=== PATIENT | female | born 1985 | race Hispanic/Latino ===

== ENCOUNTER 2022-11-19 13:21 | Observation (INO) | payer BC ==
[~2022-11-19] VITALS: Ht 154.9 cm; Wt 111.6 kg
[2022-11-19] VITALS (21 sets, daily range): BP systolic 89–126; BP diastolic 51–95
[2022-11-19 14:43] LABS: BASOPHILS % (AUTO) 0.2 % (0.0-5.0); EOSINOPHILS % (AUTO) 0.6 % (0.0-8.0); HEMATOCRIT 39.1 % (36-48); LYMPHOCYTES % (AUTO) 15.8 % (21.0-51.0); MEAN CORPUSCULAR HEMOGLOBIN 28.8 pg (27.0-33.0); MEAN CORPUSCULAR HGB CONC 33.8 g/dL (32.0-36.0); MEAN CORPUSCULAR VOLUME 85.4 fL (79-99); MONOCYTES % (AUTO) 6.3 % (3.0-13.0); NEUTROPHILS % (AUTO) 76.5 % (40.0-77.0); PLATELET COUNT (AUTO) 361 K/uL (130-400); RED BLOOD CELL COUNT(AUTO) 4.58 MIL/uL (4.00-5.50); RED CELL DISTRIBUTION WIDTH 12.5 % (11.0-15.5); WHITE BLOOD COUNT (AUTO) 14.2 K/uL (4.8-10.8)
[2022-11-19] MEDS ORDERED: MORPHINE 2 MG SYG IVP PRN (15:00)
[2022-11-19] MEDS ORDERED: VANCOMYCIN PROTOCOL PER PHARMACY IV SCH (15:00)
[2022-11-19] MEDS ORDERED: ACETAMINOPHEN 325 MG TAB PO PRN (15:00)
[2022-11-19 15:05] LABS: POTASSIUM 3.5 mmol/L (3.5-5.1)
[2022-11-19 15:06] LABS: ALBUMIN 3.6 g/dL (3.5-5.0); THYROID STIMULATING HORMONE 1.2 uIU/mL (0.36-3.74); TOTAL PROTEIN, SERUM 7.9 g/dL (6.0-8.3)
[2022-11-19 15:41] LABS: INR 1.02 (0.85-1.15); PROTHROMBIN TIME 11.1 SEC (9.6-11.6)
[2022-11-19 15:45] LABS: ERYTHROCYTE SEDIMENTATION RATE 48 MM/HR (0-20)
[2022-11-19] MEDS ORDERED: VANCOMYCIN 2GM/500 ML BAG 500 ML IV ONE (16:00)
[2022-11-19] MEDS ORDERED: BUPIVACAINE/EPI/PF 0.25% 10ML VIAL IJ ONE (16:10)
[2022-11-19] MEDS ORDERED: IOHEXOL-350 75 ML VIAL IV ONE (16:41)
[2022-11-19] MEDS ORDERED: 0.9%NACL 1000ML 1,000 ML IV ONE (17:41)
[2022-11-19] MEDS ORDERED: PROPOFOL 10 MG/ML 20ML VIAL IV ONE (17:46)
[2022-11-19] MEDS ORDERED: MIDAZOLAM HCL 1 MG/ML 2ML VIAL ONE (17:46)
[2022-11-19] MEDS ORDERED: ONDANSETRON 4MG INJ ONE (17:51)
[2022-11-19] MEDS ORDERED: ROCURONIUM 10MG/1ML SYR 10 MG/ML ML ONE (17:52)
[2022-11-19] MEDS ORDERED: INSULIN HUMULIN R 100 UNIT/ML 3ML SQ SCH (18:00)
[2022-11-19] MEDS ORDERED: MEPERIDINE-PF 25 MG/ML SYG ONE ×3 (18:06→19:35)
[2022-11-19] MEDS ORDERED: FENTANYL CITRATE PF 50 MCG/1 ML 2ML VIAL ONE ×2 (18:17→18:55)
[2022-11-19] MEDS ORDERED: PHENYLEPHRINE HCL 10 MG/ML 1ML VIAL IV ONE (18:26)
[2022-11-19] MEDS ORDERED: NEOSTIGMINE 5MG/5ML SYR IV ONE (18:49)
[2022-11-19] MEDS ORDERED: GLYCOPYRROLATE 1 MG/5 ML SYRINGE ONE (18:49)
[2022-11-19] MEDS ORDERED: TRAMADOL HCL 50 MG TABLET PO PRN (19:00)
[2022-11-19] MEDS ORDERED: METO-408 PO (22:36)
[2022-11-19] MEDS ORDERED: CEPH500C2 PO (22:36)
[2022-11-19] MEDS ORDERED: LISI10TA24 PO (22:36)
[2022-11-20] VITALS: BP_SYST 116; BP_SYST 143; BP_DIAS 70; BP_DIAS 83
[2022-11-20] MEDS: VANCOMYCIN 750MG VIAL IVPB SCH ×2 (00:15→09:16)
[2022-11-20 04:00] VITALS: BP 136/82
[2022-11-20] MEDS: INSULIN HUMULIN R 100 UNIT/ML 3ML SQ SCH ×2 (06:07→11:30)
[2022-11-20] MEDS ORDERED: BENZOCAINE/MENTH/CETYLPYRD CL 1 EACH LOZENGE MM PRN (06:30)
[2022-11-20 08:00] VITALS: BP 138/78
[2022-11-20] MEDS ORDERED: 0.9% NACL 250ML 250 ML ONE (09:17)
[2022-11-20 11:50] VITALS: BP 111/67
[2022-11-20 13:32] LABS: HEMATOCRIT 38.4 % (36-48); MEAN CORPUSCULAR HEMOGLOBIN 28.7 pg (27.0-33.0); MEAN CORPUSCULAR VOLUME 89.5 fL (79-99); RED BLOOD CELL COUNT(AUTO) 4.29 MIL/uL (4.00-5.50); RED CELL DISTRIBUTION WIDTH 12.7 % (11.0-15.5); WHITE BLOOD COUNT (AUTO) 11.9 K/uL (4.8-10.8)
[2022-11-20 13:49] LABS: POTASSIUM 3.2 mmol/L (3.5-5.1)
[2022-11-20 16:54] VITALS: BP 119/73
== END 2022-11-20 17:30 | disposition home or self-care (01) ==
LOC: EDH 13:21 → DIRECT 13:22 → 4CH 20:26
PROVIDERS: ADMIT Internal Medicine Infectious Disease; ATTEND Internal Medicine Infectious Disease
DX: A41.9 Sepsis, unspecified organism (principal); R22.2 Localized swelling, mass and lump, trunk; E11.9 Type 2 diabetes mellitus without complications; E66.01 Morbid (severe) obesity due to excess calories; D72.829 Elevated white blood cell count, unspecified; I10 Essential (primary) hypertension; Z79.899 Other long term (current) drug therapy
CPT/HCPCS: 38500; 96365; 96366 ×2; 84443; 80061; 80053; 85025; 85610; 85651; 82948 ×5; 86140; 81025; 36415 ×2; 71270; 80048; 85027; G0378 ×24; A4663; J3010 ×2; J3490 ×2; J2710; J7030; J2250; J2704; J2405; J2175 ×3; J2370; Q9967; J3370 ×4; A4215; A4223; A4222; A4221; J7050

== ENCOUNTER → 2022-11-19 | Outpatient (CLI) | payer BC ==
[~2022-11-19] MED LIST: CEPH500C2 PO; LIDOCAINE HCL 4% LTA SOL 4 ML VIAL TP ONE; LISI10TA24 PO; METO-408 PO
== END | disposition home or self-care (01) ==
LOC: WHH 08:57
PROVIDERS: ATTEND Family Medicine
DX: R22.2 Localized swelling, mass and lump, trunk (principal); S41.102A Unspecified open wound of left upper arm, initial encounter; E11.9 Type 2 diabetes mellitus without complications; I10 Essential (primary) hypertension; E78.5 Hyperlipidemia, unspecified; F41.9 Anxiety disorder, unspecified; E66.9 Obesity, unspecified; Z68.42 Body mass index [BMI] 45.0-49.9, adult; Z87.891 Personal history of nicotine dependence; X58.XXXA Exposure to other specified factors, initial encounter; Y93.89 Activity, other specified; Y92.89 Other specified places as the place of occurrence of the external cause; Y99.8 Other external cause status
CPT/HCPCS: 11104; 87070; 99215

== ENCOUNTER → 2022-12-15 | Outpatient (CLI) | payer BC ==
[~2022-12-15] MED LIST changes: -CEPH500C2 PO
== END | disposition home or self-care (01) ==
LOC: WHH 13:13
PROVIDERS: ATTEND Family Medicine
DX: T81.89XA Other complications of procedures, not elsewhere classified, initial encounter (principal); R22.9 Localized swelling, mass and lump, unspecified; E11.9 Type 2 diabetes mellitus without complications; I10 Essential (primary) hypertension; E78.5 Hyperlipidemia, unspecified; E66.01 Morbid (severe) obesity due to excess calories; F41.9 Anxiety disorder, unspecified; Z68.42 Body mass index [BMI] 45.0-49.9, adult; Z87.891 Personal history of nicotine dependence; Y83.8 Other surgical procedures as the cause of abnormal reaction of the patient, or of later complication, without mention of misadventure at the time of the procedure; Y92.238 Other place in hospital as the place of occurrence of the external cause
CPT/HCPCS: 99214; A6209; A6260

== ENCOUNTER → 2022-12-22 | Outpatient (CLI) | payer BC | END | disposition home or self-care (01) | LOC: WHH 10:55 | PROVIDERS: ATTEND Family Medicine | DX: T81.89XD Other complications of procedures, not elsewhere classified, subsequent encounter (principal); R22.2 Localized swelling, mass and lump, trunk; E11.9 Type 2 diabetes mellitus without complications; I10 Essential (primary) hypertension; E78.5 Hyperlipidemia, unspecified; F41.9 Anxiety disorder, unspecified; E66.9 Obesity, unspecified; Z68.42 Body mass index [BMI] 45.0-49.9, adult; Z87.891 Personal history of nicotine dependence; Y83.8 Other surgical procedures as the cause of abnormal reaction of the patient, or of later complication, without mention of misadventure at the time of the procedure | CPT/HCPCS: 99214; A6248; A4450 ==

== ENCOUNTER → 2022-12-29 | Outpatient (CLI) | payer BC | END | disposition home or self-care (01) | LOC: WHH 07:56 | PROVIDERS: ATTEND Nurse Practitioner Family | DX: T81.31XD Disruption of external operation (surgical) wound, not elsewhere classified, subsequent encounter (principal); R22.2 Localized swelling, mass and lump, trunk; L02.411 Cutaneous abscess of right axilla; E11.9 Type 2 diabetes mellitus without complications; I10 Essential (primary) hypertension; E78.5 Hyperlipidemia, unspecified; F41.9 Anxiety disorder, unspecified; E66.9 Obesity, unspecified; Z68.42 Body mass index [BMI] 45.0-49.9, adult; Z87.891 Personal history of nicotine dependence; Y83.8 Other surgical procedures as the cause of abnormal reaction of the patient, or of later complication, without mention of misadventure at the time of the procedure | CPT/HCPCS: 10180; 87070; 87077 ×3; 87186 ×3; A6248; 10061 ==

== ENCOUNTER → 2023-01-05 | Outpatient (CLI) | payer BC | END | disposition home or self-care (01) | LOC: WHH 08:02 | PROVIDERS: ATTEND Nurse Practitioner Family | DX: T81.31XD Disruption of external operation (surgical) wound, not elsewhere classified, subsequent encounter (principal); L02.411 Cutaneous abscess of right axilla; E11.9 Type 2 diabetes mellitus without complications; I10 Essential (primary) hypertension; E78.5 Hyperlipidemia, unspecified; B35.4 Tinea corporis; E66.9 Obesity, unspecified; R22.2 Localized swelling, mass and lump, trunk; F41.9 Anxiety disorder, unspecified; Z68.42 Body mass index [BMI] 45.0-49.9, adult; Z87.891 Personal history of nicotine dependence; Y83.8 Other surgical procedures as the cause of abnormal reaction of the patient, or of later complication, without mention of misadventure at the time of the procedure | CPT/HCPCS: 99214; A6248 ==

== ENCOUNTER → 2023-01-12 | Outpatient (CLI) | payer BC ==
[~2023-01-12] MED LIST changes: -LIDOCAINE HCL 4% LTA SOL 4 ML VIAL TP ONE
== END ==
LOC: WHH 08:00
PROVIDERS: ATTEND Nurse Practitioner Family
DX: T81.31XD Disruption of external operation (surgical) wound, not elsewhere classified, subsequent encounter (principal); L02.411 Cutaneous abscess of right axilla; E11.9 Type 2 diabetes mellitus without complications; I10 Essential (primary) hypertension; E78.5 Hyperlipidemia, unspecified; B35.4 Tinea corporis; E66.9 Obesity, unspecified; R22.2 Localized swelling, mass and lump, trunk; F41.9 Anxiety disorder, unspecified; Z68.42 Body mass index [BMI] 45.0-49.9, adult; Z87.891 Personal history of nicotine dependence; Y83.8 Other surgical procedures as the cause of abnormal reaction of the patient, or of later complication, without mention of misadventure at the time of the procedure
CPT/HCPCS: 17250; A6248; A4450

== ENCOUNTER → 2023-01-19 | Outpatient (CLI) | payer BC ==
[~2023-01-19] MED LIST changes: +LIDOCAINE HCL 4% LTA SOL 4 ML VIAL TP ONE
== END | disposition home or self-care (01) ==
LOC: WHH 08:19
PROVIDERS: ATTEND Nurse Practitioner Family
DX: T81.31XD Disruption of external operation (surgical) wound, not elsewhere classified, subsequent encounter (principal); L02.411 Cutaneous abscess of right axilla; E11.9 Type 2 diabetes mellitus without complications; I10 Essential (primary) hypertension; E78.5 Hyperlipidemia, unspecified; B35.4 Tinea corporis; E66.9 Obesity, unspecified; R22.2 Localized swelling, mass and lump, trunk; F41.9 Anxiety disorder, unspecified; Z68.42 Body mass index [BMI] 45.0-49.9, adult; Z87.891 Personal history of nicotine dependence; Y83.8 Other surgical procedures as the cause of abnormal reaction of the patient, or of later complication, without mention of misadventure at the time of the procedure
CPT/HCPCS: 17250

== ENCOUNTER → 2023-01-26 | Outpatient (CLI) | payer BC ==
[~2023-01-26] MED LIST changes: -LIDOCAINE HCL 4% LTA SOL 4 ML VIAL TP ONE
== END | disposition home or self-care (01) ==
LOC: WHH 08:09
PROVIDERS: ATTEND Nurse Practitioner Family
DX: T81.31XD Disruption of external operation (surgical) wound, not elsewhere classified, subsequent encounter (principal); L02.411 Cutaneous abscess of right axilla; E11.9 Type 2 diabetes mellitus without complications; I10 Essential (primary) hypertension; E78.5 Hyperlipidemia, unspecified; B35.4 Tinea corporis; E66.9 Obesity, unspecified; R22.2 Localized swelling, mass and lump, trunk; F41.9 Anxiety disorder, unspecified; Z68.42 Body mass index [BMI] 45.0-49.9, adult; Z87.891 Personal history of nicotine dependence; Y83.8 Other surgical procedures as the cause of abnormal reaction of the patient, or of later complication, without mention of misadventure at the time of the procedure
CPT/HCPCS: 99214